=== PATIENT | female | born 2000 ===

== ENCOUNTER 2022-04-02 05:54 | Inpatient (IN) | payer SELFPAY ==
[2022-04-02] MEDS ORDERED: OXYTOCIN DRIP 30,000 MILLIUNITS/500 ML BAG IV ONE (06:11)
[2022-04-02] MEDS ORDERED: TERBUTALINE 1 MG/1 ML INJ SUB-Q PRN (06:17)
[2022-04-02] MEDS ORDERED: LOPERAMIDE 2 MG CAP PO PRN (06:17)
[2022-04-02] MEDS ORDERED: BUTORPHANOL 2 MG/1 ML INJ IV PRN (06:17)
[2022-04-02] MEDS ORDERED: METHYLERGONOVINE MALEATE 0.2 MG/ML VIAL IM PRN (06:17)
[2022-04-02] MEDS ORDERED: ACETAMINOPHEN 325 MG TAB PO PRN ×2 (06:17→06:32)
[2022-04-02] MEDS ORDERED: CARBOPROST TROMETHAMINE 250 MCG/1 ML INJ IM PRN (06:17)
[2022-04-02] MEDS ORDERED: fentaNYL 100 MCG/2 ML INJ IV PRN (06:17)
[2022-04-02] MEDS ORDERED: MINERAL OIL 30 ML ORAL LIQD PO PRN (06:17)
[2022-04-02] MEDS ORDERED: LIDOCAINE (2%) 20 MG/1 ML VIAL 20 ML MDV INFILTRATI ONE ×2 (06:17→06:34)
[2022-04-02] MEDS ORDERED: ePHEDrine SULFATE 50 MG/1 ML INJ IV PRN (06:17)
[2022-04-02] MEDS ORDERED: OXYTOCIN 10 UNIT/1 ML INJ IM PRN (06:17)
[2022-04-02] MEDS ORDERED: miSOPROStol 200 MCG TAB PR PRN (06:17)
[2022-04-02 06:28] LABS: Hematocrit 39.8 % (30.3-42.9); Hemoglobin 13.7 gm/dl (10.1-14.3); Mean Corpuscular HGB Conc 34 % (30-34); Mean Corpuscular Volume 90 fl (79-97); Platelet Count 157 K/mm3 (140-440)
--- NOTE | 2022-04-02 06:28 | History and Physical Report ---
History of Present Illness Date of examination: 04/02/22 Date of admission: 04/02/22 05:54 Chief complaint: Contractions History of present illness: 21-year-old at 39-5/7 weeks gestation presents to OB triage reporting regular and painful uterine contractions every 5 minutes. There is no vaginal bleeding. There is no leakage of fluid. There is good movement. In OB triage, cervical exam was noted to be 10 cm dilated. As this patient is an active labor, she is admitted to labor and delivery. Past History Past Medical History: no pertinent history Past Surgical History: no surgical history Family/Genetic History: none Social history: no significant social history - Obstetrical History Expected Date of Delivery: 04/04/22 Actual Gestation: 39 Week(s) 5 Day(s) : 2 Para: 1 Medications and Allergies Allergies Allergy/AdvReac Type Severity Reaction Status Date / Time No Known Allergies Allergy Unverified 04/02/22 06:17 Active Meds: Active Medications Acetaminophen (Acetaminophen 325 Mg Tab) 650 mg PO Q4H PRN PRN Reason: Pain, Mild (1-3) Butorphanol Tartrate (Butorphanol 2 Mg/1 Ml Inj) 1 mg IV Q2H PRN PRN Reason: Pain, Moderate(4-6) LABOR PAIN Carboprost Tromethamine (Carboprost Tromethamine 250 Mcg/1 Ml Inj) 250 mcg IM ONCE PRN PRN Reason: Uterine Bleeding Ephedrine Sulfate (Ephedrine Sulfate 50 Mg/1 Ml Inj) 10 mg IV Q2M PRN PRN Reason: Hypotension Fentanyl (Fentanyl 100 Mcg/2 Ml Inj) 100 mcg IV Q2H PRN PRN Reason: Pain,Severe (7-10) LABOR PAIN Oxytocin/Sodium Chloride (Pitocin/Ns 30 Unit/500ml) 30 units in 500 mls @ 2 mls/hr IV TITR DENZEL; Protocol Lactated Ringer's (Lactated Ringers) 1,000 mls @ 125 mls/hr IV DIRECT DENZEL Oxytocin/Sodium Chloride (Pitocin/Ns 30 Unit/500ml) 30 units in 500 mls @ 40 mls/hr IV TITR DENZEL; Protocol Methylergonovine Maleate (Methylergonovine Maleate 0.2 Mg/Ml Vial) 0.2 mg IM ONCE PRN PRN Reason: Uterine Bleeding Terbutaline Sulfate (Terbutaline 1 Mg/1 Ml Inj) 0.25 mg SUB-Q ONCE PRN PRN Reason: Hyperstimulation/Hypertonicity Review of Systems All systems: negative - Physical Exam Breasts: Positive: normal Cardiovascular: Regular rate Lungs: Positive: Normal air movement Abdomen: Positive: normal appearance Genitourinary (Female): Positive: normal external genitalia, normal perenium Vulva: both: normal Vagina: Positive: normal moisture Uterus: Positive: enlarged Adnexa: both: normal Anus/Rectum: Positive: normal perianal skin Extremities: Positive: normal Deep Tendon Reflex Grade: Normal +2 - Obstetrical FHR: category 1 Uterine Contraction Monitor Mode: External Cervical Dilatation: 10 Cervical Effacement Percentage: 100 station: 1 Uterine Contraction Frequency (min): 5 Uterine Contraction Pattern: Regular Uterine Tone Measurement Phase: Contraction Uterine Contraction Intensity: Moderate Results Result Diagrams: 04/02/22 06:09 All other labs normal. Assessment and Plan - Patient Problems (1) 39 weeks gestation of Current Visit: Yes Status: Acute Plan to address problem: care is up-to-date at [facility]. She is GBS negative. (2) Spontaneous onset of labor after 37 but before 39 completed weeks gestation with delivery by planned section Current Visit: Yes Status: Acute Plan to address problem: The patient is 10 cm dilated. She is an active labor. Admit to labor and delivery. Artificially rupture membranes and anticipate normal spontaneous vaginal delivery.
[2022-04-02] MEDS ORDERED: LACTATED RINGERS 1,000 ML IV SCH (06:30)
[2022-04-02] MEDS ORDERED: HYDROcodone/ACETAMINOPHEN 5-325 MG TAB PO PRN (06:32)
[2022-04-02] MEDS ORDERED: MAGNESIUM HYDROXIDE (MOM) ORAL LIQD UDC PO PRN (06:32)
[2022-04-02] MEDS ORDERED: BENZOCAINE/MENTHOL 20/0.5% TOP SPRAY 56 GM TP PRN (06:32)
[2022-04-02] MEDS ORDERED: LANOLIN/ZINC/DIMETHICONE (LANSINOH) 7 GM TP PRN (06:32)
[2022-04-02] MEDS ORDERED: WITCH HAZEL/ GLYCERIN PAD TP PRN (06:32)
--- NOTE | 2022-04-02 06:34 | Procedure Note ---
OB Delivery Note - Delivery Date of Delivery: 04/02/22 Surgeon: KYLE LANE Lapel Padder Blindstitch: SHIRLEY ALEJANDRO Estimated blood loss: 100cc - Vaginal Delivery presentation: vertex Delivery position: OA Intrapartum events: precipitous labor- <3hr Delivery induction: none Delivery augmentation: rupture of membranes Delivery monitor: external FHT, external uterine Route of delivery: Delivery placenta: spontaneous Delivery cord: 3 umbilical vessels Delivery laceration: 1st degree Delivery repair: vicryl Anesthesia: local - A at 1 minute: 8 at 5 minutes: 9 Gender: Female
[2022-04-02] MEDS ORDERED: OXYTOCIN DRIP 30 UNITS/500 ML BAG IV SCH ×2 (07:00)
[2022-04-02] MEDS: DOCUSATE SODIUM 100 MG CAP PO SCH ×2 (11:24→21:41)
[2022-04-02] MEDS: IBUPROFEN 800 MG TAB PO SCH ×3 (11:24→23:39)
[2022-04-03] MEDS: IBUPROFEN 800 MG TAB PO SCH ×2 (05:49→10:20)
[2022-04-03 07:57] LABS: Hematocrit 38.2 % (30.3-42.9); Hemoglobin 12.7 gm/dl (10.1-14.3); Mean Corpuscular HGB Conc 33 % (30-34); Mean Corpuscular Volume 91 fl (79-97); Platelet Count 171 K/mm3 (140-440); Red Blood Count 4.18 M/mm3 (3.65-5.03); Red Cell Distribution Width 13.2 % (13.2-15.2)
--- NOTE | 2022-04-03 09:03 | Progress Note ---
Assessment and Plan A: PPD # 1 - stable P: Discharge home today Discharge instructions given Subjective - Subjective Date of service: 04/03/22 Principal diagnosis: PPD # 1 Patient reports: appetite normal [place]: doing well Objective - Vital Signs Latest vital signs: Vital Signs Temp Pulse Resp BP Pulse Ox Pulse Ox 04/03/22 05:49 18 04/03/22 00:01 97.7 F 68 18 105/59 96 04/02/22 23:39 20 04/02/22 19:45 98 04/02/22 18:18 16 04/02/22 15:37 98.1 F 77 20 109/70 99 04/02/22 12:13 98.6 F 86 20 100/56 99 04/02/22 11:24 16 Intake and Output 04/02/22 04/03/22 04/03/22 22:59 06:59 14:59 Intake Total 320 360 Balance 320 360 Intake: Oral 320 360 Other: Total, Intake Amount 120 120 # Voids Void 1 1 - Exam Breasts: Present: deferred Cardiovascular: Present: Regular rate Lungs: Present: Clear to auscultation Abdomen: Present: soft Vulva: both: normal Uterus: Present: fundal height below umbilicus Extremities: Present: normal Deep Tendon Reflex Grade: Normal +2
--- NOTE | 2022-04-03 09:05 | Discharge Summary ---
Providers - Providers Date of Admission: 04/02/22 05:54 Date of discharge: 04/03/22 Attending physician: KYLE LANE MD Primary care physician: KYLE LANE MD Hospitalization Reason for admission: active labor Delivery: Laceration: 1st degree Other procedures: none complications: none [place] baby: female Condition at discharge: Good Disposition: 01 HOME / SELF CARE / HOMELESS Plan - Provider Discharge Summary Activity: no sex for 6 weeks Diet: routine Instructions: routine Additional instructions: [] Smoking cessation referral if applicable(refer to patient education folder for contact #) [] Refer to [facility]'s [facility] Booklet Call your doctor immediately for: * Fever > 100.5 * Heavy vaginal bleeding ( >1 pad per hour) * Severe persistent headache * Shortness of breath * Reddened, hot, painful area to leg or breast * Drainage or odor from incision. * Keep incision clean and dry at all times and follow doctor's instructions regarding bathing/showering - Follow up plan Follow up: KYLE LANE MD [Primary Care Provider] - 6 Weeks
[2022-04-03] MEDS: DOCUSATE SODIUM 100 MG CAP PO SCH (10:20)
[2022-04-03 15:58] VITALS: BP 103/59
== END 2022-04-03 16:30 | disposition home or self-care (01) | DRG 807 ==
LOC: LD 05:54 → OB 08:49
PROVIDERS: ADMIT Obstetrics & Gynecology Gynecology; ATTEND Obstetrics & Gynecology Gynecology
PROC: 10E0XZZ Delivery of Products of Conception, External Approach (ICD-10-PCS; principal; 2022-04-02)
PROC: 0HQ9XZZ Repair Perineum Skin, External Approach (ICD-10-PCS; 2022-04-02)
DX: O62.3 Precipitate labor (principal); Z37.0 Single live birth; Z20.822 Contact with and (suspected) exposure to COVID-19; Z3A.39 39 weeks gestation of pregnancy; O70.0 First degree perineal laceration during delivery
CPT/HCPCS: 36415; 85027; 86592; 86850; 86900; 86901; 99211; G0378; G0463; U0003